=== PATIENT | male | born 1960 ===

== ENCOUNTER 2024-05-17 09:41 | Outpatient (CLI) | payer MEDICARE, BC, SELFPAY ==
--- NOTE | 2024-05-17 09:30 | RT.EKG_ITS ---
APPROVED REPORT Exam: Resting ECG Reason for Exam: ASCVD Patient Location: O HR:75 bpm ECG Measurements Heart Rate 75 AXIS MS 175 P 30 QRSd 99 QRS 12 QT 417 T 37 QTc 466 Conclusion Sinus arrhythmia...V-rate 56- 93, variation>10% Low voltage, precordial leads...precordial leads <1.0mV Abnormal R-wave progression, early transition...QRS area>0 in V2 Borderline T wave abnormalities...T/QRS ratio < 1/20 or flat T
== END 2024-05-17 09:42 | disposition home or self-care (01) ==
LOC: DI.CARD 09:41
PROVIDERS: PCP Family Medicine; Visit Provider Registered Nurse
DX: I25.10 Atherosclerotic heart disease of native coronary artery without angina pectoris (principal)
CPT/HCPCS: 93010

== ENCOUNTER → 2024-05-17 15:01 | Outpatient (BNVA) | payer MEDICARE, BC, SELFPAY | PROVIDERS: PCP Family Medicine; Referring Provider Family Medicine; Visit Provider Registered Nurse | DX: I25.10 Atherosclerotic heart disease of native coronary artery without angina pectoris (principal) | CPT/HCPCS: 93005; 99203 ==

== ENCOUNTER → 2025-05-30 10:18 | Outpatient (BNVA) | payer BC, SELFPAY | PROVIDERS: PCP Family Medicine; Referring Provider Family Medicine; Visit Provider Registered Nurse | CPT/HCPCS: 99214 ==